=== PATIENT | male | born 1950 | race Caucasian/White ===

== ENCOUNTER → 2023-10-29 14:58 | Outpatient (REF) | payer OTHER, SELFPAY | LOC: MRI 3T 14:58 | PROVIDERS: ATTENDING PHYSICIAN Surgery; FAMILY PHYSICIAN Family Medicine | DX: C61 Malignant neoplasm of prostate (principal) | CPT/HCPCS: 72197; A9575 ==

== ENCOUNTER → 2024-02-04 10:14 | Outpatient (REF) | payer BC, SELFPAY | LOC: RAD 10:14 | PROVIDERS: ATTENDING PHYSICIAN Surgery Vascular Surgery; FAMILY PHYSICIAN Family Medicine | DX: I89.0 Lymphedema, not elsewhere classified (principal); I87.2 Venous insufficiency (chronic) (peripheral) | CPT/HCPCS: 93970 ==

== ENCOUNTER → 2024-10-13 10:03 | Outpatient (REF) | payer BC, SELFPAY | LOC: HWRCS 10:03 | PROVIDERS: ATTENDING PHYSICIAN Internal Medicine; FAMILY PHYSICIAN Family Medicine | DX: Z01.810 Encounter for preprocedural cardiovascular examination (principal); I25.810 Atherosclerosis of coronary artery bypass graft(s) without angina pectoris; R06.02 Shortness of breath | CPT/HCPCS: 93306 ==

== ENCOUNTER → 2024-10-14 15:57 | Outpatient (REF) | payer BC, SELFPAY | LOC: MRI 3T 15:57 | PROVIDERS: ATTENDING PHYSICIAN Surgery; FAMILY PHYSICIAN Family Medicine | DX: C61 Malignant neoplasm of prostate (principal) | CPT/HCPCS: 72197; A9575 ==

== ENCOUNTER 2024-10-22 06:19 | Day surgery (SDC) | payer BC, SELFPAY ==
[2024-10-08 09:11] LABS: Hematocrit 42.6 % (39.0-52.0); Hemoglobin 15.0 g/dL (13.0-18.0); Mean Corp Hgb Conc. 35.2 g/dL (33.0-37.0); Mean Corpuscular Volume 88.8 fL (80.0-94.0); Platelet Count 165 10^3/uL (130-400); Red Cell Dist. Width 12.4 % (11.5-14.5)
[2024-10-08 09:55] LABS: Blood Urea Nitrogen 23 mg/dl (9-20); Calcium 9.8 mg/dl (8.4-10.2); Carbon Dioxide 25 mmol/L (22-30); Chloride 108 mmol/L (98-107); Glucose 102 mg/dl (70-99); Potassium 4.5 mmol/L (3.5-5.1); Sodium 141 mmol/L (135-145); eGFR 52.74
[2024-10-08 14:11] VITALS: BMI 35.3
--- NOTE | 2024-10-13 14:14 | PTCARENOTE ---
Patient 10/08 GFR 52.74- Kisha @ Dr. Rodriguez office notified
[2024-10-22] VITALS (8 sets, daily range): BP systolic 134–158; BP diastolic 67–133; BMI 35.3
[2024-10-22] MEDS: NORMOSOL-R/PLASMALYTE-A 1000 IV (09:19)
[2024-10-22] MEDS: TYLENOL 1000 MG PO (09:19)
--- NOTE | 2024-10-22 10:31 | HP.FOC2 ---
Focused History & Physical
Chief Complaint
HPI:
Chief Complaint: Epigastric incisional hernia
HPI / Indication for Planned Procedure: Patient is a 74-year-old male who has previously undergone median sternotomy in 2021 for cardiac procedure. He has also had a prior cholecystectomy and umbilical herniorrhaphy.
He has been experiencing intermittent discomfort in the subxiphoid/epigastric region worse with coughing and when lying on his side. There is a broad area of swelling and protrusion along the central upper abdominal wall but a more focal area of
protrusion immediately at the xiphoid/inferior aspect of his median sternotomy scar. Physical examination confirmed the presence of an epigastric incisional hernia approximately 3 cm in maximal diameter within a broad-based central abdominal wall
diastasis. Secondary to associated symptoms patient wishes to pursue operative correction for which he presents today. The anticipated operative procedure was fully reviewed in detail with the patient preoperatively obtaining written informed
consent.
Relevant Past Medical History: Other (Arthritis, hypertension, GERD, depression/anxiety, stage III CKD, ABDIFATAH, overactive bladder)
Relevant Social History: Negative
Relevant Family History: Negative
Relevant Past Surgical History: Positive for (Cataracts, inguinal herniorrhaphy, repair of detached retina, umbilical hernia repair, cholecystectomy, transposition of the pulmonary artery, anterior aorta and main PA)
Review of Systems
Review of Pertinent Systems: All Systems Negative
Medication
See Medication form for detailed medications: Yes
Medication List (including Herbals & OTC):
alprazolam 0.25 mg tablet 0.375 mg PO HS PRN sleep/anxiety 01/09/13
aspirin 81 mg chewable tablet 81 mg PO HS Blood clot prevention/tx 05/01/21
pantoprazole 40 mg tablet,delayed release 40 mg PO QPM 05/01/21
psyllium husk 3.4 gram/5.4 gram oral powder (Metamucil) 425 gm PO HS 05/01/21
sodium bicarbonate 650 mg tablet 650 mg PO DAILY 05/01/21
atorvastatin 40 mg tablet 40 mg PO HS High cholesterol 10/31/21
acetaminophen 500 mg tablet 500 mg PO Q6HPRN PRN mild pain #1 tab 11/13/21
furosemide 40 mg tablet 40 mg PO DAILY PRN edema 10/15/24
losartan 100 mg tablet 100 mg PO DAILY 10/15/24
mirabegron 50 mg tablet,extended release 24 hr (Myrbetriq) 50 mg PO DAILY 10/15/24
multivitamin 1 tab PO DAILY 10/15/24
nifedipine 30 mg tablet,extended release 24 hr 30 mg PO DAILY 10/15/24
potassium chloride 20 mEq tablet,extended release(part/cryst) (Klor-Con M) 20 meq PO DAILY PRN with lasix 10/15/24
tamsulosin 0.4 mg capsule 0.4 mg PO HS 10/15/24
Medications Reviewed: Yes
Allergies and Reactions
Patient has Allergies: Yes
Noted Allergies and Reactions:
Allergy/AdvReac Type Severity Reaction Status Date / Time
pollen extracts Allergy SEASONAL Verified 10/22/24 08:55
ALLERGIES
Pertinent Physical Exam
All Other Systems: Negative
Head/Neck: Normal
Lungs: Normal
Heart: Normal
Abdomen: Normal (Obese, diastasis recti, epigastric/subxiphoid incisional hernia)
Extremities: Normal
Neurological: Normal
Diagnosis / Assessment
74-year-old male presenting for scheduled operative correction symptomatic subxiphoid/epigastric incisional hernia status post sternotomy
Plan / Procedure
Robotic assisted laparoscopic repair epigastric incisional hernia with mesh
Anesthesia/Sedation to be done by Anesthesia Provider: Yes
--- NOTE | 2024-10-22 10:36 | W.SUR.PREOP ---
Pre-Operative Surgical Note
-
I have examined this patient prior to the performance of the scheduled procedure.
The patient's condition is unchanged from the time of the current History and
Physical and the patient is able to undergo the scheduled procedure.
--- NOTE | 2024-10-22 13:15 | W.IMMPOSTOP ---
Surgical Immed Post Op Note
-
Primary Surgeon: Edward Hitchcock MD
Assisting Surgeon: Andie Tong PA-C
Pre-op Diagnosis: Epigastric/subxiphoid incisional hernia
Post-op Diagnosis: Epigastric/subxiphoid incisional hernia; 3.5 cm
Procedure Performed: Robotic assisted laparoscopic MONSERRAT repair incisional hernia with mesh; Bard soft 12 cm x 15 cm
Anesthesia Type: GETA +0.25% Marcaine with epi
Specimen / Cultures: None
Estimated Blood Loss: 8 mL
Complications: None immediate
Operative Findings: Epigastric subxiphoid incisional hernia. Fascial defect 3.5 cm horizontally by 1.5 cm vertically. Transabdominal preperitoneal flap with wide peritoneal mobilization circumferentially and substernal. Suture closure of fascial
defect with 0 PDS STRATAFIX. Underlay preperitoneal mesh repair, Bard soft mesh 12 cm x 15 cm secured with numerous 2-0 PDS to fascia as well as 2-0 Vicryl. Peritoneal flap closed with 2-0 Monocryl STRATAFIX spiral.
The assistance of Andie Tong PA-C was required due to the complexity of the procedure. During the procedure Andie Tong PA-C assisted with port placement, robotic instrumentation and suture material exchanges, and closure of the surgical incision
sites. I was present for the entirety of the operative procedure.
[2024-10-22] MEDS: DILAUDID 0.25 MG IV (14:05)
== END 2024-10-22 15:20 | disposition home or self-care (01) ==
LOC: SDS 06:19
PROVIDERS: ATTENDING PHYSICIAN Surgery; FAMILY PHYSICIAN Family Medicine
DX: K43.2 Incisional hernia without obstruction or gangrene (principal)
CPT/HCPCS: 49593; 36415; 80048; 85027; C1781